=== PATIENT | male | born 1965 | race Caucasian/White ===

== ENCOUNTER 2017-10-19 22:50 | Emergency (ER) | payer OTHER ==
[~2017-10-19] VITALS: Ht 172.7 cm; Wt 90.7 kg
[2017-10-19 22:54] VITALS: BP 154/86
[2017-10-19] MEDS: NITROGLYCERIN 0.4 MG TAB SL ONE (23:31)
[2017-10-19] MEDS: ASPIRIN 325 MG TAB PO ONE (23:31)
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
[2017-10-19 23:54] LABS: BASOPHILS # (AUTO) 0.3 K/uL (0.00-0.22); BASOPHILS % (AUTO) 2.7 % (0.0-2.0); EOSINOPHILS # (AUTO) 0.3 K/uL (0-0.4); EOSINOPHILS % (AUTO) 2.7 % (0.0-4.0); HEMOGLOBIN 13.9 g/dL (12.0-18.0); LYMPHOCYTES # (AUTO) 1.8 K/uL (2.0-11.5); LYMPHOCYTES % (AUTO) 18.7 % (20.5-51.1); MEAN CORPUSCULAR HEMOGLOBIN 30 pg (27-31); MEAN CORPUSCULAR HGB CONC 33 g/dL (33-37); MEAN CORPUSCULAR VOLUME 90 fL (80-94); MONOCYTES # (AUTO) 0.6 K/uL (0.8-1.0); MONOCYTES % (AUTO) 6.8 % (1.7-9.3); NEUTROPHILS # (AUTO) 6.5 K/uL (1.8-7.7); NEUTROPHILS % (AUTO) 69.1 % (42.2-75.2); PLATELET COUNT (AUTO) 285 K/uL (140-450); RED BLOOD CELL COUNT(AUTO) 4.68 MIL/uL (4.20-6.10); RED CELL DISTRIBUTION WIDTH 12.6 % (11.6-13.7); WHITE BLOOD COUNT (AUTO) 9.5 K/uL (4.8-10.8)
[2017-10-19 23:58] LABS: ANION GAP 13.1 (8-16); CARBON DIOXIDE 26.7 mmol/L (21-32); CREATININE 1.1 mg/dL (0.7-1.3); POTASSIUM 3.8 mmol/L (3.5-5.1)
[2017-10-20 00:04] LABS: ALBUMIN 3.3 g/dL (3.4-5.0); TOTAL BILIRUBIN 0.3 mg/dL (0.0-1.0)
[2017-10-20] MEDS: IBUPROFEN 600 MG TAB PO ONE (01:12)
--- NOTE | 2017-10-20 01:45 | NUR ---
X-RAY TECH CALLED FOR FOLLOW UP ON CT SCAN, NO ANSWER, WILL FOLLOW UP.
--- NOTE | 2017-10-20 02:00 | NUR ---
PT LAYING IN BED, AWAITING CT SCAN WILL CONTINUE TO MONITOR
--- NOTE | 2017-10-20 02:15 | NUR ---
X-RAY TECH CALLED AGAIN, NO ANSWER, WILL FOLLOW UP.
[2017-10-20] MEDS: HYDROcodone/APAP 10/325 MG 1 TAB TAB PO STA (03:20)
--- NOTE | 2017-10-20 03:45 | NUR ---
PT SITTING IN BED, VSS, FAMILY AT BEDSIDE, WILL CONTINUE TO MONITOR
--- NOTE | 2017-10-20 04:25 | NUR ---
Patient discharged with v/s stable. Written and verbal after care instructions given and explained. Patient alert, oriented and verbalized understanding of instructions. Ambulatory with steady gait. All questions addressed prior to discharge. ID band removed. Patient advised to follow up with PMD. Rx of NORCO 5MG, IBUPROHPEN 600 MG given. Patient educated on indication of medication including possible reaction and side effects. Opportunity to ask questions provided and answered.
[2017-10-20 04:38] VITALS: BP 150/80
== END 2017-10-20 04:25 | disposition home or self-care (01) ==
LOC: MED 22:50
DX: S16.1XXA Strain of muscle, fascia and tendon at neck level, initial encounter (principal); S20.219A Contusion of unspecified front wall of thorax, initial encounter; V49.49XA Driver injured in collision with other motor vehicles in traffic accident, initial encounter; Y93.89 Activity, other specified; Y92.488 Other paved roadways as the place of occurrence of the external cause; Y99.8 Other external cause status
CPT/HCPCS: 36415; 71045; 71260; 72125; 80053; 83880; 84484; 85025; 85610; 85730; 93005; 99285; Q0092